=== PATIENT | female | born 1945 | race Hispanic/Latino ===

== ENCOUNTER 2019-01-22 08:01 | Outpatient (CLI) | payer MEDICARE ==
--- NOTE | 2019-01-22 08:48 | MMO ---
Bilateral MAMMO Bilat Screen [facility]. CLINICAL HISTORY: Patient is 73 years old and is seen for screening. The patient has no personal history of cancer. VIEWS: The views performed were: bilateral craniocaudal with tomosynthesis and bilateral mediolateral oblique with tomosynthesis. FILMS COMPARED: The present examination has been compared to prior imaging studies performed at [facility] on 11/26/2012, 01/05/2014, 01/07/2015 and 01/10/2016. MAMMOGRAM FINDINGS: There are scattered fibroglandular densities. There are benign appearing calcifications. Nodularity is stable. There are no suspicious masses, suspicious calcifications, or new areas of architectural distortion. IMPRESSION: THERE IS NO MAMMOGRAPHIC EVIDENCE OF MALIGNANCY. A ROUTINE FOLLOW-UP MAMMOGRAM IN 1 YEAR IS RECOMMENDED. THE RESULTS OF THIS EXAM WERE SENT TO THE PATIENT. ACR BI-RADS Category 2 - Benign finding MAMMOGRAPHY NOTE: 1. A negative mammogram report should not delay a biopsy if a dominant of clinically suspicious mass is present. 2. Approximately 10% to 15% of breast cancers are not detected by mammography. 3. Adenosis and dense breasts may obscure an underlying neoplasm. Reported by: ROSEANN ANDERSON MD Electonically Signed: [id number]
== END 2019-01-22 08:02 | disposition home or self-care (01) ==
LOC: BICMAMMO 08:01
PROVIDERS: ATTEND Family Medicine
DX: Z12.31 Encounter for screening mammogram for malignant neoplasm of breast (principal)
CPT/HCPCS: 77063; 77067

== ENCOUNTER 2019-06-17 09:09 | Outpatient (CLI) | payer MEDICARE ==
--- NOTE | 2019-06-17 09:51 | BD ---
EXAM: Bone densitometry using DEXA HISTORY: 73 yo female. Screening for postmenopausal osteoporosis FINDINGS: L1--bone mineral density 0.939 g/sq cm; T score -0.5 ; Z score 1.5 L2--bone mineral density 0.953 g/sq cm; T score -0.7 ; Z score 1.5 L3--bone mineral density 0.998 g/sq cm; T score -0.8 ; Z score 1.6 L4--bone mineral density 1.108 g/sq cm; T score 0.4 ; Z score 2.8 Total L1-L4--bone mineral density 1.013 g/sq cm; T score -0.3 ; Z score 1.9 Left femoral neck--bone mineral density0.665; T score -1.7 ; Z score 0.3 Total proximal left femur--bone mineral density 0.959; T score 0.1 ; Z score 1.8 The 10 year fracture risk for a major osteoporotic fracture is 6% and for a hip fracture is 1.1%. IMPRESSION: Osteopenia
== END 2019-06-17 09:10 | disposition home or self-care (01) ==
LOC: BICMAMMO 09:09
PROVIDERS: ATTEND Family Medicine
DX: M85.869 Other specified disorders of bone density and structure, unspecified lower leg (principal); M85.852 Other specified disorders of bone density and structure, left thigh
CPT/HCPCS: 77080

== ENCOUNTER 2023-01-10 11:55 | Outpatient (CLI) | payer MEDICARE | END 2023-01-10 11:56 | disposition home or self-care (01) | LOC: BICULT 11:55 | PROVIDERS: ATTEND Family Medicine | DX: M25.562 Pain in left knee (principal); R60.0 Localized edema ==